=== PATIENT | female | born 1995 | race Two or more races ===

== ENCOUNTER 2021-11-29 11:28 | Emergency (ER) | payer MEDICAID, OTHER ==
[~2021-11-29] VITALS: Ht 160 cm; Wt 89.8 kg
[2021-11-29] MEDS ORDERED: PANTOPRAZOLE 40 MG TAB PO ONE (12:00)
[2021-11-29 13:18] LABS: Basophils # (auto) 0 10 ^3/uL (0-0.2); Basophils % (auto) 0.6 % (0.0-2.0); Calcium 9.1 mg/dL (8.5-10.1); Eosinophils # (auto) 0.1 10 ^3/uL (0-0.8); Hemoglobin 15.3 g/dL (12.2-16.2); Lymphocytes # (auto) 2.1 10 ^3/uL (0.4-5.4); Lymphocytes % (auto) 24.6 % (10.0-50.0); Mean Corpuscular Hemoglobin 31.3 pg (28.0-32.0); Mean Corpuscular Volume 91.9 fL (80.0-100.0); Monocytes # (auto) 0.3 10 ^3/uL (0-1.3); Monocytes % (auto) 3.9 % (0.0-12.0); Neutrophils # (auto) 5.9 10 ^3/uL (1.6-8.6); Neutrophils % (auto) 69.9 % (37.0-80.0); Red Cell Distribution Width 12.4 % (11.8-14.3); White Blood Cell 8.4 10^3/uL (4.4-10.8)
[2021-11-29 13:24] LABS: BUN/Creatinine Ratio 14.5; Bilirubin, Total 0.5 mg/dL (0.2-1.0); Total Protein 8.3 g/dL (6.4-8.2)
[2021-11-29] MEDS ORDERED: PANT40TA2 PO (14:20)
[2021-11-29 15:10] VITALS: BP 140/90
== END 2021-11-29 15:15 | disposition home or self-care (01) ==
LOC: ER 11:28
DX: R07.89 Other chest pain (principal); K29.00 Acute gastritis without bleeding
CPT/HCPCS: 36415; 76705; 80053; 82150; 83690; 85025; 93005

== ENCOUNTER 2024-01-14 18:44 | Emergency (ER) | payer MEDICAID ==
[~2024-01-14] VITALS: Ht 160 cm; Wt 88.6 kg
[~2024-01-14 18:44] MED LIST: PANT40TA2 PO
[2024-01-14] MEDS: methylPREDNISolone SOD SUCC 125 MG/2 ML VL IM ONE (20:39)
[2024-01-14] MEDS: KETOROLAC TROMETH 30 MG/ML 1ML VIAL IM ONE (20:40)
[2024-01-14 20:46] VITALS: BP 118/73; PULSE 78; RESP 18; TEMP 98.4; O2SAT 99
== END 2024-01-14 20:45 | disposition home or self-care (01) ==
LOC: ER 18:44
DX: G56.03 Carpal tunnel syndrome, bilateral upper limbs (principal); F41.9 Anxiety disorder, unspecified; Z79.899 Other long term (current) drug therapy
CPT/HCPCS: 73110; 96372; 99284; J1885; J2930